=== PATIENT | male | born 1970 | race Caucasian/White ===

== ENCOUNTER 2023-11-27 08:02 | Emergency (ER) | payer MEDICARE, MEDICAID, SELFPAY ==
--- NOTE | ~2023-11-27 | XR_ITS ---
EXAMINATION: XR SHOULDER, RIGHT CLINICAL INFORMATION: Right shoulder pain COMPARISON: None available. TECHNIQUE: AP external rotation, scapular Y, and axillary views of the right shoulder. FINDINGS: 3 views of right shoulder reveals no evidence of fracture. There is mild narrowing of glenohumeral joint and marginal spurring seen at the inferior margins of the joint space. Soft tissues unremarkable. Acromioclavicular joint is normal. XR/XR shoulder RT min 2V IMPRESSION: Mild degenerative changes of acromioclavicular joint.
[2023-11-27 08:03] VITALS: BP 148/84; PULSE 71; RESP 20; TEMP 37.1; O2SAT 97; BMI 25.1
--- NOTE | 2023-11-27 08:18 | ED.EXTPRO ---
HPI - Extremity Problem General Chief complaint: Extremity Injury, Upper Stated complaint: shoulder pain Time Seen by Provider: 11/27/23 08:18 Source: patient Mode of arrival: ambulatory Limitations: no limitations History of Present Illness ED Provider: MALAIKA ALLAN PA-C HPI Narrative: 53 year old male with no significant pmhx presents to the ED today for evaluation of right shoulder pain which began after doing yardwork on Tuesday (3 days ago). Reports pulling weeds when he immediately felt pain to the anterior aspect of his right shoulder. Pain is worse with movement of the RUE. Taking Tylenol at home with minimal relief, last dose being last night. Denies fever, chills, limited ROM, numbness/tingling/weakness of the RUE. Denies blunt trauma. Related Data Previous Rx's ?Medication ?Instructions ?Recorded cyclobenzaprine 5 mg tablet 5 mg PO Q8H PRN muscle pain #7 tabs 11/27/23 lidocaine 5 % topical patch 1 patch topical DAILY #15 ea 11/27/23 (Lidoderm) naproxen 500 mg tablet 500 mg PO Q8-12H PRN pain (scale 11/27/23 score 1-3) #20 tabs Allergies Allergy/AdvReac Type Severity Reaction Status Date / Time aspirin [ASA] AdvReac Unknown STOMACH Verified 11/27/23 08:05 UPSET Review of Systems Review of Systems: Constitutional: No fever, chills, fatigue, night sweats, weight changes ENT/Mouth: No ear pain, hearing loss, nasal congestion, sinus pain, rhinorrhea, sore throat Eyes: No eye pain, swelling, redness, vision changes, discharge Cardio: No chest pain, palpitations, ESTEBAN, orthopnea, peripheral edema Pulm: No SOB, cough, sputum, wheezing, dyspnea, hemoptysis GI: No nausea, vomiting, hematemesis, abdominal pain, diarrhea, constipation, hematochezia, melena : No irregular bleeding, dysuria, frequency, urgency, hesitancy, hematuria, flank pain, urinary flow changes, urinary incontinence or retention MSK: No back pain, neck pain, joint pain, myalgias, +right shoulder pain Skin: No lesions, rashes Neuro: No weakness, numbness, paresthesias, LOC, dizziness, headache Psych: No anxiety/panic, depression, SI/HI, AH/VH All other systems reviewed and are negative. [facility] Past Medical History Attestation statement: The following information was validated with the patient. Source: old records reviewed and nursing notes reviewed Social History Social History Advance Directives: No Advance Directives Information Provided: No Physical Exam Vital Signs: Vital Signs: Last Vital Signs Temp 98.8 F 11/27/23 08:03 Pulse 71 11/27/23 08:03 Resp 20 11/27/23 08:03 BP 148/84 H 11/27/23 08:03 Pulse Ox 97 11/27/23 08:03 O2 Del Method Room Air 11/27/23 08:03 BMI result Body Mass Index 25.1 Patient hypertensive, vitals otherwise WNL Const: General: cooperative, healthy appearing, comfortable and no acute distress Orientation/consciousness: patient oriented x3 Limitations: no limitations HEENT: Head: Yes normal to inspection, Yes No palpable skull fracture present, Yes normocephalic and Yes atraumatic Eyes: General: appearance normal, both eyes and all related structures Resp: Effort & Inspection: normal respiratory effort and able to speak in complete sentences Auscultation: clear to auscultation bilaterally Cardio: Rate: regular rate Rhythm: regular rhythm Back/Spine/Pelvis: Other: No midline spinous tenderness or step off deformity. No paraspinal muscle tenderness. Skin: General skin exam: no rashes or lesions noted Neuro: Other: Strength 5/5 intact throughout. Sensation intact to light touch.? Neurovascular intact distally.? General: patient oriented x3 Extrem: Other: + right shoulder without overlying skin changes or obvious deformities. there is full ROM intact to right shoulder with minimal pain illicited on abduction. TTP of anterior aspect of shoulder without palpable deformity, fluctuance, crepitus. [employer] strength intact. sensation intact to light touch. strength intact. 2+ radial and ulnar pulse intact. Course Course Course Narrative: 929-- XR right shoulder without fracture. It does show chronic degenerative changes within the AC joint itself. I did discuss all findings with patient. Sling provided for comfort. Advised to follow up with PCP. Patient has remained stable throughout ED visit today. Discussed worrisome signs and symptoms and when to return to the ED. All questions answered at this time. Patient is agreeable with disposition and stable for discharge. Medications Administered Discontinued Medications Generic Name Dose Route Start Last Admin Trade Name Bassem PRN Reason Stop Dose Admin Ketorolac Tromethamine 30 mg 11/27/23 08:30 11/27/23 08:34 Ketorolac Tromethamine 30 Mg/Ml Vial IM 11/27/23 08:31 30 mg ONCE ONE Administration Medical Decision Making Medical Decision Making MDM Narrative: 53 year old male with no significant pmhx presents to the ED today for evaluation of right shoulder pain which began after doing yard work on Tuesday (3 days ago). Patient hypertensive likely secondary to pain, vitals otherwise wnl. He is nontoxic appearing and in NAD. He is sitting comfortably on the exam bed. On exam of right shoulder there are no overlying skin changes or obvious deformities. there is full ROM intact to right shoulder with minimal pain illicited on abduction. TTP of anterior aspect of shoulder without palpable deformity, fluctuance, crepitus. [employer] strength intact. sensation intact to light touch. strength intact. 2+ radial and ulnar pulse intact. Differential diagnosis includes msk sprain, strain, tendinitis, arthritis. Lower suspicion for dislocation/ fracture, rotator cuff injury. Unlikely NV compromise, threat to limb, compartment syndrome. Plan for imaging, pain control, and re-evaluation. Differential Diagnosis Differential Diagnoses: The differential diagnosis associated with the presentation includes as above. Admission/Observation Not indicated. Independent Interpretation I performed an independent interpretation of an: Plain X-Ray Interpretation: XR right shoulder without fracture, agree with radiologist's interpretation. Radiology Impression Discussion of test interpretation with radiology: I have reviewed the radiologist's reading. Radiologist Impression: EXAMINATION: XR SHOULDER, RIGHT CLINICAL INFORMATION: Right shoulder pain COMPARISON: None available. TECHNIQUE: AP external rotation, scapular Y, and axillary views of the right shoulder. FINDINGS: 3 views of right shoulder reveals no evidence of fracture. There is mild narrowing of glenohumeral joint and marginal spurring seen at the inferior margins of the joint space. Soft tissues unremarkable. Acromioclavicular joint is normal. XR/XR shoulder RT min 2V IMPRESSION: Mild degenerative changes of acromioclavicular joint. Prescription Management I considered prescription management with: Pain Medication Social Determinants Patient?s care significantly limited by Social Determinants of Health including: Other Social Determinant of Health Procedures Orthopedic Splinting/Casting Injury #1: Side: right Upper Extremity Injury Location: shoulder Upper Extremity Immobilizer: sling/shoulder immobilizer Critical Care Time Critical Care Time Critical Care Time: No Discharge Plan Discharge Clinical Impression: Muscle strain of right shoulder Qualifiers: Encounter type: initial encounter Qualified Code(s): S46.911A - Strain of unspecified muscle, fascia and tendon at shoulder and upper arm level, right arm, initial encounter Patient Disposition: Home, Self-Care Instructions: Muscle Strain (ED), Shoulder Immobilizer (ED) Additional Instructions: The xrays of your right shoulder do not demonstrate fracture. They do show chronic degenerative changes within the joint itself. You were supplied with a shoulder sling. You may use this for the next few days to limit movement of the shoulder. Make sure you are removing your arm and moving it around a few times a day to prevent frozen shoulder. Use ice several times per day for 20 minutes at a time for the next 48 hours and then change to heat. Flexeril is a muscle relaxer. Take this at night as it makes you drowsy. Do not drive, drink alcohol, or operate machinery while taking it. Naproxen is an anti-inflammatory / pain medication. Take with food. Do not take this with Ibuprofen. Lidoderm patches are numbing patches. Apply to painful areas. In addition you may take Tylenol at home. Follow up with your primary care provider as needed If your pain worsens, if you develop new numbness, tingling, weakness, return to the ED. Prescriptions: New cyclobenzaprine 5 mg tablet 5 mg PO Q8H PRN (Reason: muscle pain) Qty: 7 0RF naproxen 500 mg tablet 500 mg PO Q8-12H PRN (Reason: pain (scale score 1-3)) Qty: 20 0RF lidocaine [Lidoderm] 5 % adhesive patch,medicated 1 patch topical DAILY Qty: 15 0RF Rx Instructions: leave on most painful area for up to 12 hrs Referrals: Gigi Escobar MD [Primary Care Provider] - Discharge Date/Time: 11/27/23 09:53 Print Language: Yoruba
[2023-11-27] MEDS: Ketorolac Tromethamine 30 MG/ML VIAL IM (08:34)
[2023-11-27 09:52] VITALS: BP 148/84; PULSE 71; RESP 20; TEMP 37.1; O2SAT 97
== END 2023-11-27 09:53 | disposition home or self-care (01) ==
PROVIDERS: Emergency Provider Emergency Medicine; PCP Family Medicine
DX: S46.911A Strain of unspecified muscle, fascia and tendon at shoulder and upper arm level, right arm, initial encounter (principal); M25.511 Pain in right shoulder; X50.3XXA Overexertion from repetitive movements, initial encounter; X50.9XXA Other and unspecified overexertion or strenuous movements or postures, initial encounter; Y93.H2 Activity, gardening and landscaping; Y92.007 Garden or yard of unspecified non-institutional (private) residence as the place of occurrence of the external cause; Y99.8 Other external cause status
CPT/HCPCS: 29105; 73030; 96372; 99283; 99284; J1885

== ENCOUNTER 2024-05-23 11:45 | Emergency (ER) | payer MEDICARE, MEDICAID, SELFPAY ==
--- OUTSIDE RECORDS SUMMARY | 2024-05-23 11:54 | XMS_ITS | Data Portability ---
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 [address] 12/26/2015 10:43:20 12/26/2015 11:58:05 Adult health examination 662068085 Z00.00 see Risk Assessment and Lifestyle Change Counseling section above Benign ess ential hypertension 5488874 I10 Blood pressure NOT at goal. Asthma 179968118 J45.40 PERSISTENT (Mild/Mod/ Severe) Based on history, physical assessment and peak flow the patient's asthma in Not in control. See orders for adjustment in plan. The asthma action plan has been discussed. The patient verbalizes understand ing of medication use. The patient is in agreement with this plan Low back pain 635407636 M54.5 Verruca vulgaris 8281636 3 B07.9 [id number] Ciara Robbins MD , [facility], [facility] [place] [address] 01/28/2016 09:09:14 01/28/2016 10:49:26 Benign essential hypertension 8406841 I10 Blood pressure NOT at goal of less than 140/90 Shoulder pain 84420042 M 25.512 Bereavement 01749591 Z63 .4 Asthma 356612843 J45.40 PERSISTENT (Mild/Mod/ Severe) Based on history, physical assessment and peak flow the patient's asthma in Not in control. See orders for adjustment in plan. The asthma action plan has been discussed. The patient verbalizes understand ing of medication use. The patient is in agreement with this plan Low back pain 572522898 M54.5 Chronic back pain 754866 002 M54.9 [id number] MD TOBI Franklin, [facility], [facility] [place] [address] 04/19/2016 09:36:45 04/19/2016 10:30:03 Benign essential hypertension 3072006 I10 Low back pain 971196307 M54.5 Opioid dependence 375766 00 F11.20 Gastroenteritis 25329969 K52.9 [id number] Amalia Damon MD , [facility], OFFICE [address] [place] [phone] 04/22/2016 11:23:37 04/22/2016 14:59:24 Chest pain 77691825 R07.9 [id number] Ciara Robbins MD , [facility] OFFICE [address] [place] [address] 04/26/2016 11:17:40 04/26/2016 13:13:23 Low back pain 661704432 M54.5 Migraine 92641552 G43.90 9 Moderate m ajor depression 936911 F32.1 [id number] Ciara Robbins MD , [facility] OFFICE [address] [place] [address] 08/10/2016 13:23:06 08/10/2016 14:03:05 Oral infection 482811293 K13.79 Asthma 195180327 J45.90 9 Allergy to cat dander 23 2776203 J30.81 Fatigue 55309643 R53.83 [id number] Deann Delacruz NP FP, [facility], OFFICE [address] [place] [phone] 08/18/2016 08:49:18 08/18/2016 10:34:10 Asthma 202226747 J45.926 [id number] Ciara Robbins MD , [facility] OFFICE [address] [place] [phone] 09/10/2016 09:18:19 09/10/2016 10:15:51 Long-term drug therapy 103394740 Z79.899 Acute uppe r respiratory infection 43830516 J06.9 Educated patient that URI is a viral illness of the upper airways. It is not bacterial and does not benefit from antibiotic s. Average duration of URI is 7-10 days but in a recent trial, treatment at 7-10 days of illness with antibiotic s, intranasal steroids, or placebo did not alter natural history at 3 weeks. Recommende d symptomati c treatments including NSAIDS, semi-uprig ht sleep position, antihistam young at HS, limited course of nasal sympathomi metics and/or cough syrups, and nasal saline rinses with soft squeeze bottle or Neti pot. Return for fevers > 101 for 3 days, worsening sinus pain, or failure to resolve in 2-4 weeks. Asthma 580756981 J45.90 9 Chronic low back pain 27 0986808 M54.5 Molluscum contagiosum infection 60372605 B08.1 [id number] Christine Evans NP , [facility], OFFICE [address] [place] [phone] 09/28/2016 14:51:04 09/28/2016 15:22:18 Infection of tooth 187818223 K04.7 tooth 10. discussed with TR [id number] Ciara Robbins MD , [facility] OFFICE [address] [place] [phone] 12/29/2016 14:37:19 12/29/2016 16:09:08 Benign essential hypertension 2173214 I10 Blood pressure at goal Asthma 648522783 J45.30 PERSISTENT (Mild/Mod/ Severe) Based on history, physical assessment and peak flow the patient's asthma in Not in control. See orders for adjustment in plan. The asthma action plan has been discussed. The patient verbalizes understand ing of medication use. The patient is in agreement with this plan Counseling 863380757 Z71 .9 Eruption 974660813 R21 Chronic pain 49382656 G8 9.29 [id number] HILARY Hui , [facility], OFFICE [address] [place] [phone] 03/22/2017 11:19:25 03/22/2017 14:52:17 Adult health examination 760153691 Z00.00 see Risk Assessment and Lifestyle Change Counseling section above Counseling 585559785 Z71 .9 Benign ess ential hypertension 0071442 I10 Blood pressure at goal Blood pressure NOT at goal. Intrinsic asthma 6270734 08 J45.20 INTERMITTE NT Asthma- Based on history, physical assessment and peak flow the patients asthma is in control. Will continue the present medication s and follow-up in 6 months. The asthma action plan has been discussed. The patient verbalizes understand ing medication use.. The patient is in agreement with this plan. Infection of tooth 49404 8007 K04.7 Periodontitis 05944332 K 05.30 Start abxf/u with dentist asapFollow up for any worsening or changing symptoms Family his tory of Cardiovascular disease 664670793 Z82.49 Checking labsDiscus sed importance of diet and exercise [id number] Ciara Robbins MD , [facility] [place] [address] 03/29/2017 17:20:15 03/30/2017 12:55:54 Benign essential hypertension 0846741 I10 Blood pressure NOT at goal. Asthma 362812524 J45.30 PERSISTENT (Mod) Based on history, physical assessment and peak flow the patient's asthma in Not in control. See orders for adjustment in plan. The asthma action plan has been discussed. The patient verbalizes understand ing of medication use. The patient is in agreement with this plan Periodontitis 88457072 K 05.30 Low back pain 737939347 M54.5 [id number] Ciara Robbins MD , [facility] [place] [address] 06/03/2017 14:14:40 06/06/2017 13:36:16 Benign essential hypertension 2263002 I10 Asthma 393690624 J45.30 PERSISTENT (Mild/Mod/ Severe) Based on history, physical assessment and peak flow the patient's asthma is in control. The asthma action plan has been discussed. The patient verbalizes understand ing of medication use. The patient is in agreement with this plan Acute uppe r respiratory infection 09885321 J06.9 Educated patient that URI is a viral illness of the upper airways. It is not bacterial and does not benefit from antibiotic s. Average duration of URI is 7-10 days but in a recent trial, treatment at 7-10 days of illness with antibiotic s, intranasal steroids, or placebo did not alter natural history at 3 weeks. Recommende d symptomati c treatments including NSAIDS, semi-uprig ht sleep position, antihistam young at HS, limited course of nasal sympathomi metics and/or cough syrups, and nasal saline rinses with soft squeeze bottle or Neti pot. Return for fevers > 101 for 3 days, worsening sinus pain, or failure to resolve in 2-4 weeks. Obesity 343064683 E66.9 [id number] Ciara Robbins MD , [facility], OFFICE [address] [place] [phone] 08/17/2017 08:37:36 08/17/2017 09:25:19 Benign essential hypertension 3712607 I10 Chronic pain 86213418 R5 2 Asthma 526548596 J45.30 PERSISTENT (Mild/Mod/ Severe) Based on history, physical assessment and peak flow the patient's asthma is in control. See orders for adjustment in plan. The asthma action plan has been discussed. The patient verbalizes understand ing of medication use. The patient is in agreement with this plan [id number] Ciara Robbins MD , [facility], OFFICE [address] [place] [phone] 10/11/2017 17:07:41 10/11/2017 17:49:32 Benign essential hypertension 1940301 I10 Blood pressure at goal of less tahn 140/90. [id number] Ciara Robbins MD , [facility], OFFICE [address] [place] [phone] 03/06/2018 08:14:41 03/06/2018 08:55:44 Lumbar spondylosis 495357926 M47.26 Anxiety 21562966 F41.9 Chronic post-traumatic stress disorder 064151497 F43.12 [id number] Ciara Robbins MD , [facility], OFFICE [address] [place] [address] 03/29/2018 16:07:35 03/30/2018 08:32:05 Adult health examination 263621187 Z00.00 see risk assesment and counseling section Depression screening 171 447166 Z13.89 depression screening tool administer ed, entered into emr Asthma 061657694 J45.30 PERSISTENT (Mild/Mod/ Severe) Based on history, physical assessment and peak flow the patient's asthma in Not in control. See orders for adjustment in plan. The asthma action plan has been discussed. The patient verbalizes understand ing of medication use. The patient is in agreement with this plan Non-alcoho lic fatty liver 514798425 K76.0 Insomnia 287182942 G47.0 0 Resting tremor 51453970 G25.2 Chronic low back pain 27 5072347 M54.5 [id number] Ciara Robbins MD , [facility] OFFICE [address] [place] [phone] 06/12/2018 08:25:18 06/12/2018 09:09:58 Asthma 328626712 J45.30 PERSISTENT (Mild/Mod/ Severe) Based on history, physical assessment and peak flow the patient's asthma in Not in control. See orders for adjustment in plan. The asthma action plan has been discussed. The patient verbalizes understand ing of medication use. The patient is in agreement with this plan Benign ess ential hypertension 9231066 I10 Blood pressure at goal of less tahn 140/90. Major depr ession in remission 68863332 F32.5 Low back pain 465625338 M54.5 [id number] Ciara Robbins MD , [facility] OFFICE [address] [place] [phone] 06/30/2018 14:16:41 07/03/2018 12:05:13 Asthma 225202140 J45.30 Low back pain 941390349 M54.5 [id number] Ciara Robbins MD , [facility] OFFICE [address] [place] [address] 08/28/2018 08:04:07 08/28/2018 09:48:44 Chronic low back pain 960079676 M54.5 Cerebrovas cular accident 203396235 I63.9 with poor writing ability ever since. Lumbar spondylosis 24114 0009 M47.26 Anxiety 35999359 F41.9 Chronic post-traumatic stress disorder 428842692 F43.12 Benign ess ential hypertension 7293753 I10 Blood pressure at goal of less tahn 140/90. [id number] Ciara Robbins MD , [facility] OFFICE [address] [place] [phone] 02/20/2019 10:42:16 02/20/2019 15:18:00 Adult health examination 894311059 Z00.00 see risk assesment and counseling section Depression screening 171 583794 Z13.89 depression screening tool administer ed, entered into emr, scored and discussed Asthma 143638656 J45.30 PERSISTENT (Mild/Mod/ Severe) Based on history, physical assessment and peak flow the patient's asthma is not in control. See orders for adjustment in plan. The asthma action plan has been discussed. The patient verbalizes understand ing of medication use. The patient is in agreement with this plan Benign ess ential hypertension 7387155 I10 Blood pressure at goal of less tahn 140/90. [id number] Ciara Robbins MD , [facility] [place] [address] 04/09/2020 10:03:29 04/09/2020 12:19:16 Essential hypertension 26390653 I10 unknown control Moderate p ersistent asthma 266797329 J45.40 (symptoms or bronchodil ator use daily) PERSISTENT {{moderate * severe}} Based on history, physical assessment , and peak flow, the patient's asthma {{is is not*}} in control. but close ACT continue symbicort and albut as needed. Screening for malignant neoplasm of colon 222592121 Z12.11 Referral for a DIRECT booked colonoscop y. This patient is a healthy ASA Class 1 or 2 patient (only mild systemic disease), or a STABLE, well controlled insulin dependent diabetic. They do not have serious cardiac disease ie NV/angiopl asty within 1 year, symptomati c CHF; renal failure with CKD 4 or 5; take Coumadin, Plavix, Aggrenox, etc. Lumbar spondylosis 12432 0009 M47.26 edible MJ helps Benign ess ential hypertension 1493697 I10 Blood pressure at goal of less tahn 140/90. [id number] Ciara Robbins MD , [facility] [place] [address] 07/01/2020 17:30:38 07/03/2020 07:59:41 Pain of left shoulder joint 5459415386 4318262 M25.512 suspect AC joint separation . use the diclofenac , could add lidocaine if needed. will do pt referral and x-ray. and f/u about 3-4 wks. call if getting worse. [id number] Julienne Wheat PT Physical Therapy, [facility] [address] [place] [address] 07/15/2020 13:51:42 07/22/2020 12:04:40 Shoulder pain 86640734 M25.280 [id number] Ciara Robbins MD , [facility] [place] [address] 08/26/2020 13:39:28 08/28/2020 13:20:33 Adult health examination 048726871 Z00.00 see risk assesment and counseling section Depression screening 171 824278 Z13.31 depression screening tool administer ed, entered into emr, scored and discussed Screening for alcohol abuse 674917539 Z13.39 Counseling 464877707 Z71 .89 including cardiovasc ular risk reduction counseling Mild inter mittent asthma 649236544 J45.20 (symptoms or bronchodil ator use at most two days per week) Based on history, physical assessment , and ACT, the patient's asthma is in control. Will continue the present medication s and follow up in 6 months. The asthma action plan has been discussed. The patient verbalizes understand ing medication use.. The patient is in agreement with this plan. Essential hypertension 31048471 I10 unknown control Screening for malignant neoplasm of colon 368170711 Z12.11 Referral for a DIRECT booked colonoscop y. This patient is a healthy ASA Class 1 or 2 patient (only mild systemic disease), or a STABLE, well controlled insulin dependent diabetic. They do not have serious cardiac disease ie [place]/angiopl asty within 1 year, symptomati c CHF; renal failure with CKD 4 or 5; take Coumadin, Plavix, Aggrenox, etc. Cerebrovas cular accident 392507470 I63.9 with poor writing ability ever since. Non-alcoho lic fatty liver 774459249 K76.0 denies alcohol use Cutaneous horn 770981854 L85.8 forhead, cutaneous horn or wart treated with LN Recurrent major depression in partial remission 49302182 F33.41 Does not want meds [id number] , [facility], OFFICE [address] [place] [address] 02/25/2021 08:24:09 02/25/2021 08:59:10 Mild persistent asthma 913288883 J45.30 (symptoms or bronchodil ator use more than two days per week) PERSISTENT {{Mild* Mo d Severe}} Based on history, physical assessment , and peak flow, the patient's asthma {{is* is not}} in control. See orders for adjustment in plan.The asthma action plan has been discussed. The patient verbalizes understand ing of medication use.The patient is in agreement with this plan. Essential hypertension 01345873 I10 132/82, contnuie current meds. amlodipine Otorrhea of right ear 10 49371244 453709 H92.11 and red ear?TM and pulsatile, refer to ENT. [id number] Ciara Robbins MD , [facility] [place] [address] 09/22/2021 17:14:59 09/22/2021 17:42:59 Essential hypertension 13549338 I10 64280, contnuie current meds. amlodipine Active or passive immunization 235417121 Z23 Patient declines the covid vaccine Asthma 456312619 J45.30 PERSISTENT (MildBased on history, physical assessment and peak flow the patient's asthma is not in control. See orders for adjustment in plan.The asthma action plan has been discussed. The patient verbalizes understand ing of medication use.The patient is in agreement with this plan Chronic low back pain 27 2649120 M54.50 continue the gabapentin at night and takes gummy. CVA - cere brovascular accident due to cerebral artery occlusion 033029484 I63.50 memory /spelling issues. Non-alcoho lic fatty liver 757165171 K76.0 denies alcohol use Recurrent major depression in partial remission 76282181 F33.41 Does not want meds Impaired f asting glycemia 797171919 R73.01 853 [id number] Ciara Robbins MD , [facility] [place] [address] 04/05/2022 16:09:29 04/05/2022 16:40:25 Adult health examination 293454680 Z00.00 see risk assesment and counseling section Depression screening 171 003387 Z13.31 depression screening tool administer ed, entered into emr, scored and discussed, Screening for alcohol abuse 352202780 Z13.39 Counseling 580583435 Z71 .89 including cardiovasc ular risk reduction counseling Essential hypertension 84036492 I10 130/80, contnuie current meds. amlodipine Active or passive immunization 315760262 Z23 Patient declines the covid vaccine and FLU vaccine Screening for malignant neoplasm of colon 279628415 Z12.11 will do the occult blood. Non-alcoho lic fatty liver 721391259 K76.0 milk thistle. continue reduce alcohol. Impacted c erumen in left ear 3988844346 860590 H61.22 [id number] Ciara Robbins MD , [facility] [place] [address] 04/16/2022 11:24:45 04/20/2022 16:03:07 Active or passive immunization 723959368 Z23 Patient declines the covid vaccine and FLU vaccine Impacted cerumen 8396342 6 H61.20 good clearance with irrigation [id number] Ciara Robbins MD , [facility] [place] [address] 03/23/2023 16:01:57 03/23/2023 17:48:08 COVID-19 579859451 U07.1 : Considered oral steroid for asthma but Paxlovid is given a double to quadruple the budesonide dose from the Symbicort so will hold on adding steroid unless he is getting worse in the next few days. For asthma. Paxlovid pros and cons. Discussed and will take the treatment. Discussed pros and cons of paxlovid A discussion regarding the use of Paxlovid treatment in the setting of COVID-19 infection was had with the patient.Th e patient qualifies for Paxlovid treatment. They are 12 years old or older and weight at least 40kg (88lbs). They have a positive COVID test (either PCR or antigen). Symptom onset was within 5 days. They do not have severe renal impairment (GFR >30). If the GFR is 30-60, the dose of the medication is reduced. eGFR >60: 300mg nirmatrelv ir (two 150mg tablets) with 100mg ritonavir (one tablet). All 3 tablets taken together twice daily for 5 days, with or without food. ? ? eGFR 30-60: 150mg nirmatrelv ir with 100mg ritonavir. Both tablets taken together twice daily for 5 days, with or without food. The patient was advised that the treatment is sent to a local pharmacy. 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 Data from clinical trials have shown that these treatments reduce the risk of ER visits, hospitaliz ation, and in patients with mild to moderate symptoms, and those at high risk of complicati ons. Side effects were discussed: 1. Allergic reactions are possible, notify the nurse with any concerning symptoms2. Liver problems ? notify your provider if you experience loss of appetite, yellowing of the skin or eyes, dark colored urine, or pale colored stools.3. Altered sense of taste4. Nausea5. High blood pressure6. Muscle aches7. This is medication is still being investigat ed so not all side effects are known at this time.8. Risks for or breastfeed ing women are currently unknown.9. This medication may interact with oral control options. Please use condoms or a barrier method while on this medication .Your provider has reviewed interactio ns with all of your medication s and the following need to be stopped or the dose reduced: xxxHow do I take PAXLOVID?P AXLOVID consists of 2 medicines: nirmatrelv ir and ritonavir. - Take 2 pink tablets of nirmatrelv ir with 1 white tablet of ritonavir by mouth 2 times each day (in the morning and in the evening) for 5 days. For each dose, take all 3 tablets at the same time.- If you have kidney disease, talk to your healthcare provider. You may need a different dose.- Swallow the tablets whole. Do not chew, break, or crush the tablets.- Take PAXLOVID with or without food.- Do not stop taking PAXLOVID without talking to your healthcare provider, even if you feel better.- If you miss a dose of PAXLOVID within 8 hours of the time it is usually taken, take it as soon as you remember. If you miss a dose by more than 8 hours, skip the missed dose and take the next dose at your regular time. Do not take 2 doses of PAXLOVID at the same time. [id number] Ciara Robbins MD , [facility] OFFICE [address] [place] [address] 04/27/2023 09:07:12 04/27/2023 10:11:36 Essential hypertension 14057832 I10 130/80, contnuie current meds. amlodipine Low back pain 846425980 M54.50 continue gabapentin [id number] Ciara Robbins MD , [facility]ICE [address] [place] [phone] 11/01/2023 16:40:15 11/01/2023 17:32:01 Essential hypertension 29137801 I10 134/72, contnuie current meds. amlodipine lisinopril /hctz Chronic back pain 377275 002 M54.9 conitnue gabaentin. Mild persi stent asthma 123447126 J45.30 continue the dulera. [id number] Ciara Robbins MD , [facility], OFFICE [address] [place] [phone] 6 12/16/2023 08:28:58 12/16/2023 10:08:48 Screening for malignant neoplasm of colon 104312638 Z12.11 agrees to IFOBT Pain of ri ght shoulder joint 2835278788 0225756 M25.511 Suspect ant deltoid strain, improving. [id number] GABO Hurley , [facility], OFFICE [address] [place] [phone] 6 03/29/2024 13:44:13 03/29/2024 14:56:36 Dysuria 81318589 R30.0 Patient with urinary symptoms. HE IS UNABLE TO DO URINE NOW, WILL TAKE HOME THE CUP, BRING BACK LATER TODAYAWARE TO NOT START MEDS UNTIL URINE TEST SUBMITTED History C/W URINARY TRACT INFECTIONN o symptoms of pyelonephr itis. Will send urine for culture.Di scussed supportive and preventive measures.P atient instructed to follow up if not better or with new symptoms. Active or passive immunization 021873579 Z23 vac declined [id number] Valerie Rosales CMA , [facility], OFFICE [address] [place] [address] 05/04/2024 08:44:04 05/04/2024 09:41:23 Adult health examination 590067673 Z00.00 see risk assesment and counseling section Depression screening 171 798368 Z13.31 depression screening tool administer ed Screening for alcohol abuse 065760454 Z13.39 Alcohol use screening tool administer ed Mild inter mittent asthma 739904338 J45.20 (symptoms or bronchodil ator use at most two days per week) Based on history, physical assessment , and ACT, the patient's asthma is in control. Will continue the present medication s and follow up in 6 months. The asthma action plan has been discussed. The patient verbalizes understand ing medication use.. The patient is in agreement with this plan. Active or passive immunization 491642866 Z23 Flu:Shingl es and PPV: knows to get at pharmacy Screening for malignant neoplasm of colon 591650793 Z12.11 agrees to IFOBT Essential hypertension 68007994 I10 134/86 contnuie current meds. amlodipine lisinopril /hctz Health Concerns Section Related Observation LastModified by Organization Detai ls LastModified Time None Recorded Concern Status LastModified by Organization Details LastModified Time None Recorded Advance Directives Directive None Recorded Payers Encounter Date Sequence Insurance Name Policy Number Policy Moreau Covered Member ID Moreau Member ID Guarantor Name 04/27/2023 1 [place] [employer] Elgin Cooney [id number] Elgin Cooney 04/27/2023 2 [place] Elgin Cooney [id number] Elgin Cooney 11/01/2023 1 MEDICARE B-[place]: [employer] Elgin Cooney [id number] Elgin Cooney 11/01/2023 2 [place] Elgin Cooney [id number] Elgin Cooney 12/16/2023 1 MEDICARE B-[place]: [employer] Elgin Cooney [id number] Elgin Cooney 12/16/2023 2 [place] [facility] Elgin Cooney [id number] Elgin Cooney 03/29/2024 1 [place] [facility] Elgin Cooney [id number] Elgin Cooney 03/29/2024 2 [place] [facility]) Elgin Cooney [id number] Elgin Cooney 05/04/2024 1 MEDICARE B-[place]: [facility] Elgin Cooney [id number] Elign Cooney 05/04/2024 2 [place] [facility]) Elgin Cooney [id number] Elgin Cooney Notes Date Note Type Note Provider Name and Address Organization Details Recorded Time 3 text/html [facility] AsthmaReported bypatient.Severity/Intens ity/Frequency of Symptoms:Intermittent asthma with symptoms less than 2 days per weekNotes:Well controlledVMG HypertensionReported bypatient.Context:No ischemic heart disease; No kidney disease; No history of CVA; No congestive heart failure; No history of transient ischemic attacks; No peripheral vascular disease; No history of diabetes Control:Patient understands medications are to lower blood pressure Compliance:Compliant with medications; Compliant with diet; Compliant with exercise; Compliant with follow-up visits Barriers to CareNo identified barriers to care Associated Symptoms:No chest pain; No shortness of breath; No edema; No fatigue; No palpitations; No decline in exercise capacity (other than back pain); No snoring Here for MMRecovering from Covid. HTN on Lisinopril, Hctz and amlodipine. No CP or SOB. 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 Chicken , greens, brussel sprouts. Missed fishing due to Covid. Awaiting schedule colonoscopy - had to cancel for Covid. Has a fatty liver. Chronic back pain. worse w/ rain, snow , WEaned himself off narcotics, but still suffers. Hard to move around. takes gabapentin. Has not had covid vaccine, thinking of it. Uses asthma med symbicort and the albut as needed. Ciara Robbins MD [address] [place] [address], [phone], [facility] 04/27/2023 10:10:48 4 text/html [facility] AsthmaReported bypatient.Severity/Intens ity/Frequency of Symptoms:Intermittent asthma with symptoms less than 2 days per weekNotes:Well controlledVMG HypertensionReported bypatient.Context:No ischemic heart disease; No kidney disease; No history of CVA; No congestive heart failure; No history of transient ischemic attacks; No peripheral vascular disease; No history of diabetes Control:Patient understands medications are to lower blood pressure Compliance:Compliant with medications; Compliant with diet; Compliant with exercise; Compliant with follow-up visits Barriers to CareNo identified barriers to care Associated Symptoms:No chest pain; No shortness of breath; No edema; No fatigue; No palpitations; No decline in exercise capacity (other than back pain); No snoring Here for MM HTN on Lisinopril, Hctz and amlodipine. No CP or SOB. no edema aSthma- on dulera / albut. Hard when it is hot. 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 Chicken , greens, brussel sprouts. broccoli. Walks a lot 2-3 miles a day.Going fishing. Has a fatty liver. Chronic back pain. worse w/ rain, snow , WEaned himself off narcotics, but still suffers. Hard to move around. takes gabapentin. Uses asthma med symbicort and the albut as needed. Ciara Robbins MD [address] [place] [address], [phone], [facility] 11/01/2023 17:34:29 4 text/html Here for f/u R shoulder injury . Went to [employer] 11/26. 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 Nl AC joint. Doing his own rehab. using the stretch band.still some anterior deltoid pain. But ROM back. Edibles and tylenol. . Ciara Robbins MD [address] [place] [address], [phone], [facility] 12/16/2023 09:04:56 4 text/html Urinary FrequencyReported bypatient.SymptomsBurning ; No fever; No chills;Back pain(chronic back pain); No nausea; No vomiting 3 days ago noted dysuriaBurning and hesistancyNo bloodNo fevers - one time felt hot/sweaty few d ago. Cant urinate now- WILL COME BACK LATER W SAMPLEDrinking org cranberry juice GABO Hurley [facility] 03/29/2024 15:22:33 text/html Risk Assessment and Lifestyle Change Counseling (Medicare)Reported bypatient.Coronary Artery Disease Risk Assessment:Family History of Coronary Artery Disease(mother and father) Breast Cancer Risk Assessment:No family history of breast cancer Colon Cancer Risk Assessment:No family history of pre cancerous colon polyps or cancer Lung Cancer Risk Assessment:Never smoked Fracture Risk Assessment:No unexplained fracture; No anti-seizure medication; Taking Vitamin D supplement; No chronic use of proton pump inhibitors;Uses proton pump inhibitors on a chronic basis Cognitive/Behavioral Risk Assessment:Personal history of mental illness Safety Risk Assessment:No rails on steps Functional Status:Does not live alone Diet:Counseled about eating a diet low in trans and saturated fats and high in fiber, fruits and vegetables; Counseled about appropriate calcium intake and good dietary sources of calcium.; Discussed the value of a Mediterranean diet , and eating more fruits and vegetables; eating lots of meat Exercise counseling:Discussed the importance of daily physical activity; Discussed the importance of weight bearing exercise Safety:Counseled about avoiding excessive and unsafe alcohol intake; Counseled about use of seat belts; 12 beers a weekVMG AsthmaReported bypatient.Severity/Intens ity/Frequency of Symptoms:Intermittent asthma with symptoms less than 2 days per weekNotes:-Well controlled. uses the albut for trigger w/ cold air. symbicort daily. faceVMG HypertensionReported bypatient.Context:No ischemic heart disease; No kidney disease; No history of CVA; No congestive heart failure; No history of transient ischemic attacks; No peripheral vascular disease; No history of diabetes Control:Patient understands medications are to lower blood pressure Compliance:Compliant with medications; Compliant with diet; Compliant with exercise; Compliant with follow-up visits Barriers to CareNo identified barriers to care Associated Symptoms:No chest pain; No shortness of breath; No edema; No fatigue; No palpitations; No decline in exercise capacity (other than back pain); No snoring 53 yo here for physical. 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 still with R hand tremor. Uses medical MJ. Chicken , greens, brussel sprouts. ExerciseHiking, Hunting , Doing fishing. Has a fatty liver. Alcohol Micolob ultra-2 beers occasionally. 12 pk lasts a month.apple cider, vinegar, jody, gummy fiber Chronic back pain. worse w/ rain, snow , WEaned himself off narcotics, but still suffers. Hard to move around. MJ helps. Cold- induced asthma- not too bad. no longer needing dulera. using albuterol. seen a month ago got bactrim for dysuria, helped a little, but still has it, states prostate was not checked. NOHEMI Knight, [facility] 05/04/2024 09:56:44
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
[2024-05-23 12:12] VITALS: BP 164/104; PULSE 85; RESP 18; TEMP 37; O2SAT 95; BMI 28.1
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
[2024-05-23] MEDS: Diphth,Pertus(ACell),Tet Adult 0.5 ML SYRINGE IM (12:53)
[2024-05-23] MEDS: Bacitracin Oint 0.9 GM PACKET 1 APPL TOPICAL (12:55)
[2024-05-23 13:02] VITALS: BP 162/96; PULSE 86; RESP 18; TEMP 36.9; O2SAT 95
== END 2024-05-23 13:03 | disposition home or self-care (01) ==
PROVIDERS: Emergency Provider Student in an Organized Health Care Education/Training Program; PCP Family Medicine
DX: T23.201A Burn of second degree of right hand, unspecified site, initial encounter (principal); T31.0 Burns involving less than 10% of body surface; M79.641 Pain in right hand; X02.0XXA Exposure to flames in controlled fire in building or structure, initial encounter; Y93.G3 Activity, cooking and baking; Y92.090 Kitchen in other non-institutional residence as the place of occurrence of the external cause; Y99.8 Other external cause status; Z23 Encounter for immunization
CPT/HCPCS: 16025; 90471; 90715; 99282; 99284

== ENCOUNTER 2024-05-28 07:18 | Emergency (ER) | payer MEDICARE, MEDICAID, SELFPAY ==
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
[2024-05-28 07:28] VITALS: BP 144/93; PULSE 80; RESP 16; TEMP 36.4; O2SAT 97; BMI 25.1
--- NOTE | 2024-05-28 09:09 | ED.GENADULT ---
HPI - General Adult General Chief complaint: Skin/Abscess/Foreign Body Stated complaint: burn recheck r thumb Time Seen by Provider: 05/28/24 09:08 Source: patient, RN notes reviewed and old records reviewed Mode of arrival: ambulatory Limitations: no limitations History of Present Illness ED Provider: Amy HPI narrative: Patient is a 54-year-old male presenting to the emergency department for evaluation of wound to right thumb. Patient was seen here on 05/23 for a superficial partial thickness burn. He is here to ensure it does not appear infected as he is leaving to go to [place] later today. He states that he will be in a very remote area with little access to medical care. He denies any fevers, chills, body aches. Denies any increased redness, swelling, purulent drainage. MD complaint: wound check Related Data Previous Rx's ?Medication ?Instructions ?Recorded cyclobenzaprine 5 mg tablet 5 mg PO Q8H PRN muscle pain #7 tabs 11/27/23 lidocaine 5 % topical patch 1 patch topical DAILY #15 ea 11/27/23 (Lidoderm) naproxen 500 mg tablet 500 mg PO Q8-12H PRN pain (scale 11/27/23 score 1-3) #20 tabs bacitracin 500 unit/gram topical 1 appl topical BID #30 grams 05/23/24 ointment cephalexin 500 mg capsule 500 mg PO QID #28 caps 05/28/24 Allergies Allergy/AdvReac Type Severity Reaction Status Date / Time aspirin [ASA] AdvReac Unknown STOMACH Verified 05/28/24 07:29 UPSET Review of Systems Review of Systems: As per HPI Yes all other systems are reviewed and are negative Constitutional: Constitutional: Reports as per HPI [facility] Social History Social History Do you have a plan to hurt others: No Plan Physical Exam ED Vital Signs: Vital Signs - 24 hr 05/28/24 07:28 Temperature 97.6 F Pulse Rate 80 Respiratory Rate 16 Blood Pressure 144/93 H Pulse Oximetry 97 Oxygen Delivery Method Room Air BMI result Body Mass Index 25.1 Vital signs have been reviewed and appear to be correct. Blood pressure normal. Heart rate normal. Respiratory rate normal. Temperature normal. Oxygen saturation normal. Const General: cooperative, healthy appearing and no acute distress Orientation/consciousness: oriented to person, oriented to place, oriented to time and patient oriented x3 Limitations: no limitations HENMT Head: Yes normocephalic and Yes atraumatic Ears: external ears normal General nose exam: Normal external nose present Face and sinus: Yes face symmetric Mouth: oropharynx normal and moist mucous membranes Throat: Yes uvula midline Eyes Pupils: Equal, round and reactive pupils present Neck Neck: Yes normal visual inspection and Yes supple Resp Effort & Inspection: normal respiratory effort and able to speak in complete sentences Auscultation: clear to auscultation bilaterally Cardio Rate: regular rate Rhythm: regular rhythm Heart sounds: S1 normal heart sound present and S2 normal heart sound present Skin General skin exam: elasticity normal and turgor normal Neuro General: oriented to person, oriented to place, oriented to time, patient oriented x3, moves all extremities, no focal motor deficits and CN's II-XI intact bilaterally Cranial nerves: Yes Equal, round and reactive pupils present Cognition (Neuro): normal cognition Extrem General: Yes full ROM, Yes no pedal edema and Yes no calf tenderness Hand/finger images: 1. healing burn to dorsal thumb with visible granulation tissue, no surrounding erythema, edema, purulent drainage Psych Mental Status: mental status grossly normal Affect: normal affect Thought process: Normal thought process present Medical Decision Making Medical Decision Making MDM Narrative: Patient is a 54-year-old male presenting to the emergency department for evaluation of wound to right thumb. On exam patient is awake, A+Ox3, VS WNL, afebrile, normal neurological exam without focal deficits, physical exam findings as above. Given reported symptoms and physical exam findings, initial differential includes but is not limited to cellulitis, impaired wound healing. Burn appears to be healing normally, however, given this specific circumstances that patient will be without access to medical care for the next several days, discussed with patient that I will send a prescription for cephalexin should the wound begin to appear infected. Symptoms for which patient should begin taking the antibiotics were discussed with patient at length. Also advised patient that he should not expose his wound to water from lakes, ponds, etc as this can introduce new bacteria. Patient states that he has waterproof gloves and will cover the wound while fishing. Symptoms for which patient should seek emergent medical care were also discussed. Follow up with PCP as needed. Patient verbalized understanding of and agreement with plan. Differential Diagnosis Differential Diagnoses: The differential diagnosis associated with the presentation includes As per [facility] External Record Review External record reviewed: Inpatient record, Office record and Outpatient record Prescription Management I considered prescription management with: Antibiotic Discharge Plan Discharge Clinical Impression: Visit for wound check Patient Disposition: Home, Self-Care Instructions: Superficial Burn (DC), Acute Wounds (DC) Additional Instructions: You were evaluated in the emergency department today for a recheck of a burn to her right thumb. The wound appears to be healing appropriately. Considering that you are going to be traveling with little access to medical care, you are being prescribed antibiotics should the wound began to appear infected. These symptoms would include increased redness, swelling, thick yellow drainage, redness streaking up your hand, fever. If you develop these symptoms, begin taking the antibiotics and seek medical treatment as soon as possible. Follow up with PCP as needed. Prescriptions: New cephalexin 500 mg capsule 500 mg PO QID Qty: 28 0RF No Action cyclobenzaprine 5 mg tablet 5 mg PO Q8H PRN (Reason: muscle pain) Qty: 7 0RF naproxen 500 mg tablet 500 mg PO Q8-12H PRN (Reason: pain (scale score 1-3)) Qty: 20 0RF lidocaine [Lidoderm] 5 % adhesive patch,medicated 1 patch topical DAILY Qty: 15 0RF Rx Instructions: leave on most painful area for up to 12 hrs bacitracin 500 unit/gram ointment 1 appl topical BID Qty: 30 0RF Print Language: [place]ian
--- OUTSIDE RECORDS SUMMARY | 2024-05-28 09:54 | XMS_ITS | Data Portability ---
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 lisinopril [...] [place] [employer] Elgin Cooney [id number] Elgin Cooney 04/27/2023 2 [place] Elgin Cooney [id number] Elgin Cooney 11/01/2023 1 [place] [employer] Elgin Cooney [id number] Elgin Cooney 11/01/2023 2 [place] Elgin Cooney [id number] Elgin Cooney 12/16/2023 1 [place] [employer] Elgin Cooney [id number] Elgin Cooney 12/16/2023 2 [place] [facility] Elgin Cooney [id number] Elgin Cooney 03/29/2024 1 [place] [facility] Elgin Cooney [id number] Elgin Cooney 03/29/2024 2 [place] [facility] Elgin Cooney [id number] Elgin Cooney 05/04/2024 1 [place] [facility] Elgin Cooney [id number] Elgin Cooney 05/04/2024 2 [place] [facility] Elgin Cooney [id number] Elgin Cooney Notes Date Note Type Note [...] the albut as needed. Ciara Robbins MD [address] [place] [address], [phone], [facility] 04/27/2023 10:10:48 4 text/html [facility] AsthmaReported [...] the albut as needed. Ciara Robbins MD [address] [place] [address], [phone], [facility] 11/01/2023 17:34:29 4 text/html Here for f/u R shoulder injury . Went to [facility] 11/26. 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 Nl AC joint. Doing his own rehab. using the stretch band.still some anterior deltoid pain. But ROM back. Edibles and tylenol. . Ciara Robbins MD [address] [place] [address], [phone], [facility] 12/16/2023 09:04:56 4 text/html Urinary FrequencyReported bypatient.SymptomsBurning ; No fever; No chills;Back pain(chronic back pain); No nausea; No vomiting 3 days ago noted dysuriaBurning and hesistancyNo bloodNo fevers - one time felt hot/sweaty few d ago. Cant urinate now- WILL COME BACK LATER W SAMPLEDrinking org cranberry juice GABO Hurley [facility] 03/29/2024 15:22:33 text/html Risk Assessment [...] states prostate was not checked. NOHEMI Knight, [facility] 05/04/2024 09:56:44
== END 2024-05-28 09:20 | disposition home or self-care (01) ==
PROVIDERS: Emergency Provider Emergency Medicine; PCP Family Medicine
DX: Z48.00 Encounter for change or removal of nonsurgical wound dressing (principal); T23.011A Burn of unspecified degree of right thumb (nail), initial encounter; X08.8XXA Exposure to other specified smoke, fire and flames, initial encounter; Y93.9 Activity, unspecified; Y92.9 Unspecified place or not applicable; Y99.9 Unspecified external cause status
CPT/HCPCS: 99281; 99283

== ENCOUNTER 2024-10-18 06:26 | Emergency (ER) | payer MEDICARE, MEDICAID, SELFPAY ==
--- NOTE | ~2024-10-18 | XR_ITS ---
EXAMINATION: XR CHEST CLINICAL INFORMATION: bradycardia COMPARISON: None available. TECHNIQUE: Frontal view of the chest was obtained. FINDINGS: The cardiac, hilar, and mediastinal contours are normal. The lungs are clear bilaterally. No pneumothorax or effusion. No focal osseous or soft tissue abnormality. XR/XR chest 1V IMPRESSION: No active pulmonary disease. Electronically signed by: Raleigh Roland MD 10/18/2024 07:50 AM EDT
--- NOTE | ~2024-10-18 | XR_ITS ---
EXAMINATION: XR LUMBOSACRAL SPINE CLINICAL INFORMATION: pain, injury COMPARISON: None available. Study from 2013 is archived. TECHNIQUE: Three views of the lumbosacral spine. FINDINGS: There is a minimal levoconvex scoliosis. There is straightening of the normal lordosis. No fracture, compression deformity, or suspicious bone lesion evident. No significant subluxation. Severe disc degeneration focally at L4-5 with sclerosis of the endplates and disc osteophytic spurring. Mild changes of the other levels. Normal facet alignment with mild multilevel degenerative facet change. There is a very subtle cortical step-off of the superior S2 level on the sagittal view, possible sacral fracture in the appropriate clinical setting. This is not well seen on the AP projection, raising the possibility of artifact. Nevertheless, fracture not excluded. There are degenerative changes in the left greater than right SI joints. No soft tissue abnormalities noted. XR/XR lumbar spine 2-3V IMPRESSION: 1. Questionable very subtle cortical step-off superior S2 level on the sagittal projections, raising the possibility of subtle S2 fracture. This is only well appreciated on the sagittal views. This could be artifact. Would correlate with cross-sectional CT imaging if felt clinically warranted. 2. Otherwise, no definite acute bony abnormalities of the lumbar spine. 3. Mild to moderate degenerative lumbar spondylosis. Electronically signed by: Raleigh Roland MD 10/18/2024 08:43 AM EDT
[2024-10-18 06:29] VITALS: BP 142/98; PULSE 97; RESP 20; TEMP 36.7; O2SAT 98; BMI 58.5
--- NOTE | 2024-10-18 07:28 | ECG_ITS ---
Test Reason : syncope/fall Blood Pressure : */* mmHG Vent. Rate : 73 BPM Atrial Rate : 73 BPM P-R Int : 134 ms QRS Dur : 92 ms QT Int : 384 ms P-R-T Axes : 27 -18 23 degrees QTcB Int : 423 ms Normal sinus rhythm Incomplete right bundle branch block Septal infarct , age undetermined Abnormal ECG No previous ECGs available Referred By: Generic ED Physician Electronically Signed By: ASIF AGUILERA
[2024-10-18 07:38] LABS: MANUAL DIFF FLAG NO
[2024-10-18 07:45] LABS: Basophils Percent Auto 0.3 % (0-2); Eosinophils Absolute Auto 0.1 X10*3/uL (0.0-0.4); Eosinophils Percent Auto 0.5 % (0-4); Hematocrit 41.1 % (42.0-52.0); Hemoglobin 14.5 g/dl (14.0-18.0); Imm Gran Abs Auto 0.02 X10*3/uL (0.00-0.03); Imm Gran Pct Auto 0.2 % (0.0-0.4); Lymphocytes Absolute Auto 1.3 X10*3/uL (1.2-4.9); Lymphocytes Percent Auto 12.8 % (20-40); Mean Corpuscular HGB Conc 35.3 g/dl (31.0-36.0); Mean Corpuscular Hemoglobin 31.2 pg (27.0-33.0); Mean Corpuscular Volume 88.4 fL (80.0-98.0); Mean Platelet Volume 9.1 fL (9.4-12.4); Monocytes Absolute Auto 0.9 X10*3/uL (0.1-1.2); Monocytes Percent Auto 9.1 % (2-11); Neutrophils Absolute Auto 7.7 x10*3/uL (2.0-8.3); Neutrophils Percent Auto 77.1 % (45-73); Platelet Count 249 X10*3/uL (160-400); Red Blood Count 4.65 X10*6/uL (4.60-5.80); Red Cell Distribution Width 12.6 % (11.0-16.0)
--- NOTE | 2024-10-18 07:51 | ED_ITS ---
HPI - Dizziness General Chief Complaint: Fall Stated Complaint: Back Pain Time Seen by Provider: 10/18/24 07:43 Source: patient Mode of arrival: ambulatory Limitations: no limitations History of Present Illness ED Provider: HPI Narrative: This is a 54-year-old male presenting with an episode as what he describes as dizziness and fall on the steps, he states he did not hit his head or neck, and he has pain from contusion in his lower back. He states he woke up went to the bathroom to take a hot shower after hot shower he started going down the steps and this is when he likely had a syncopal episode. No reports of history of seizures did not have any prodromal symptoms of chest pain or shortness of breath, does not drink alcohol on regular basis no drug use, he takes medications for high blood pressure he is not able to recall those names, currently except for lower back pain he has no headaches no vision changes no chest pain. MD elicited complaint: dizziness Related Data Previous Rx's ?Medication ?Instructions ?Recorded cyclobenzaprine 5 mg tablet 5 mg PO Q8H PRN muscle pain #7 tabs 11/27/23 lidocaine 5 % topical patch 1 patch topical DAILY #15 ea 11/27/23 (Lidoderm) naproxen 500 mg tablet 500 mg PO Q8-12H PRN pain (scale 11/27/23 score 1-3) #20 tabs bacitracin 500 unit/gram topical 1 appl topical BID #30 grams 05/23/24 ointment cephalexin 500 mg capsule 500 mg PO QID #28 caps 05/28/24 oxycodone 5 mg capsule 5 mg PO Q8H PRN pain 3 days #10 10/18/24 caps Allergies Allergy/AdvReac Type Severity Reaction Status Date / Time aspirin [ASA] AdvReac Unknown STOMACH Verified 10/18/24 06:30 UPSET Review of Systems 2 Constitutional: Constitutional: Reports as per [facility] Social History Social History Smoked in Last 30 Days: No Use of substances other than those prescribed or required for medical reasons: No Advance Directives: No Advance Directives Information Provided: Yes Do you have a plan to hurt others: No Plan Physical Exam 2 Vital Signs: Vital Signs: Last Vital Signs Temp 98.1 F 10/18/24 06:29 Pulse 97 10/18/24 06:29 Resp 20 10/18/24 06:29 BP 142/98 H 10/18/24 06:29 Pulse Ox 98 10/18/24 06:29 O2 Del Method Room Air 10/18/24 06:29 BMI result Body Mass Index 58.5 Const: Other: * Gen: ?Overall well-appearing patient, no trauma with the face ,head * HEENT: PERRLA, EOMI, MMM, * Neck: Supple, no LAD * CV: RRR, no obvious murmurs appreciated * Resp: ?No wheezing rales rhonchi no stridor moving air well * Abd: ?Bowel sounds are present, no tenderness no rebound no rigidity * MSK: FROM, strength 5/5 all extremities, no deformities noted, does have L5/S1 tenderness without step-offs possibly more left-sided paraspinal without bruising * Skin: Warm, dry, intact, * Neuro: ?Alert and oriented x3, moving upper and lower extremities symmetrically, no obvious facial asymmetry noted, no dysmetria upper or lower extremities no nystagmus Medications Administered Discontinued Medications Generic Name Dose Route Start Last Admin Trade Name Freq PRN Reason Stop Dose Admin Ketorolac Tromethamine 15 mg 10/18/24 07:49 10/18/24 07:56 Ketorolac Tromethamine 15 Mg/Ml Vial IVPUSH 10/18/24 07:50 15 mg ONCE ONE Administration Morphine Sulfate 4 mg 10/18/24 07:49 10/18/24 07:58 Morphine Sulfate 4 Mg/Ml Cartridge IVPUSH 10/18/24 07:50 4 mg ONCE ONE Administration Protocol Oxycodone HCl 5 mg 10/18/24 07:49 10/18/24 07:59 Oxycodone Hcl Immed Release 5 Mg Tablet PO 10/18/24 07:50 5 mg ONCE ONE Administration Medical Decision Making Medical Decision Making [facility] Narrative: 07:53 some of the considerations for workup as below, patient will have cardiac workup, we will make sure does have underlying dysrhythmia but it sounds like he had a syncopal likely vagal episode after hot shower going down the steps, his main concern is that he contused his back, I did discuss with him cardiac workup , he has had no chest pain, shortness of breath, nausea or vomiting or diaphoresis to suspect ACS or PE, ECG without underlying dysrhythmia or changes to suspect underlying cardiac ischemia. If workup is reassuring anticipating discharge we will medicate for pain, we will obtain x-ray to make sure there is no obvious lumbar fractures. 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 10/18/24 07:34 10/18/24 07:34 Labs: Lab Results 10/18/24 Range/Units 07:34 WBC 10.0 (4.8-10.8) X10*3/uL RBC 4.65 (4.60-5.80) X10*6/uL Hgb 14.5 (14.0-18.0) g/dl Hct 41.1 L (42.0-52.0) % MCV 88.4 (80.0-98.0) fL MCH 31.2 (27.0-33.0) pg MCHC 35.3 (31.0-36.0) g/dl RDW 12.6 (11.0-16.0) % Plt Count 249 (160-400) X10*3/uL MPV 9.1 L (9.4-12.4) fL Immature Gran % (Auto) 0.2 (0.0-0.4) % Neut % (Auto) 77.1 H (45-73) % Lymph % (Auto) 12.8 L (20-40) % Tompkins % (Auto) 9.1 (2-11) % Eos % (Auto) 0.5 (0-4) % Baso % (Auto) 0.3 (0-2) % Lymph # (Auto) 1.3 (1.2-4.9) X10*3/uL Tompkins # (Auto) 0.9 (0.1-1.2) X10*3/uL Eos # (Auto) 0.1 (0.0-0.4) X10*3/uL Baso # (Auto) 0.0 (0.0-0.2) X10*3/uL Abs Immat Gran (auto) 0.02 (0.00-0.03) X10*3/uL Absolute Neuts (auto) 7.7 (2.0-8.3) x10*3/uL Absolute Nucleated RBC 0.000 (0.0-0.012) X10*3/uL Nucleated RBC % (auto) 0.0 (0.0-0.2) /100WBC Sodium 138 (135-145) mmol/L Potassium 3.9 (3.3-5.1) mmol/L Chloride 103 (96-108) mmol/L Carbon Dioxide 26 (22-29) mmol/L Anion Gap 13 (12-20) BUN 20 H (9-16) mg/dL Creatinine 0.89 (0.5-1.4) mg/dL Estim Creat Clear Calc 156.2 Estimated GFR > 60 Random Glucose 115 (60-115) mg/dL Calcium 10.5 H (8.4-10.2) mg/dL Troponin I High Sens < 2.7 (<3.5-35.0) ng/L Independent Interpretation I performed an independent interpretation of an: EKG (73 beats per minute, otherwise normal ECG without dysrhythmia, AV laura blocks or ST-T changes to suspect underlying ACS, my independent interpretation) and Plain X-Ray (My independent chest xray interpretation: Lungs: Lungs are clear bilaterally without evidence of focal consolidation, pleural effusion, or pneumothorax. Cardiac silhouette is unremarkable, no obvious mediastinal widening, no obvious bony abnormalities such as fractures. Impression: Normal chest X-r) Radiology Impression Discussion of test interpretation with radiology: I have reviewed the radiologist's reading. Radiologist Impression: 1. Questionable very subtle cortical step-off superior S2 level on the sagittal projections, raising the possibility of subtle S2 fracture. This is only well appreciated on the sagittal views. This could be artifact. Would correlate with cross-sectional CT imaging if felt clinically warranted. 2. Otherwise, no definite acute bony abnormalities of the lumbar spine. 3. Mild to moderate degenerative lumbar spondylosis. Prescription Management I considered prescription management with: Pain Medication Discharge Plan Discharge Clinical Impression: Injury of low back, Syncope and collapse Patient Disposition: Home, Self-Care Instructions: Back Pain (ED), Syncope (ED) Additional Instructions: Evaluated after what sounded like syncope, likely due to slight dehydration, then taking a hot shower going down the steps, please make sure to take care, stay well hydrated, rest, use ibuprofen 400 mg every 6 hours around the clock for the next few days, Tylenol 975 mg every 6 hours for additional pain control and I am providing you with a few oxycodone pills, ice packs and heat packs to the area, as discussed it was finding on the x-ray that maybe a very subtle fracture from a fall, possibly it is an old injury, if you have any issues with that you can follow up with the PCP and obtain an outpatient back MRI you may need physical therapy, and if you have any chest pain or shortness of breath and if you pass out again I would recommend that you come back to the ER that point I recommended admission. Prescriptions: New oxycodone 5 mg capsule 5 mg PO Q8H PRN (Reason: pain) 3 Days Qty: 10 0RF Rx Instructions: Partial Fill upon patient request. No Action cyclobenzaprine 5 mg tablet 5 mg PO Q8H PRN (Reason: muscle pain) Qty: 7 0RF naproxen 500 mg tablet 500 mg PO Q8-12H PRN (Reason: pain (scale score 1-3)) Qty: 20 0RF lidocaine [Lidoderm] 5 % adhesive patch,medicated 1 patch topical DAILY Qty: 15 0RF Rx Instructions: leave on most painful area for up to 12 hrs bacitracin 500 unit/gram ointment 1 appl topical BID Qty: 30 0RF cephalexin 500 mg capsule 500 mg PO QID Qty: 28 0RF Print Language: Sami
[2024-10-18 07:52] LABS: Anion Gap 13 (12-20); Blood Urea Nitrogen 20 mg/dL (9-16); Calcium 10.5 mg/dL (8.4-10.2); Carbon Dioxide 26 mmol/L (22-29); Chloride 103 mmol/L (96-108); Creatinine Clr Calc Pharmacy 156.2; Estimated Glomerular Filt Rate > 60; Glucose Random 115 mg/dL (60-115); Potassium 3.9 mmol/L (3.3-5.1); Sodium 138 mmol/L (135-145)
[2024-10-18] MEDS: Ketorolac Tromethamine 15 MG/ML VIAL IVPUSH (07:56)
[2024-10-18] MEDS: Morphine Sulfate 4 MG/ML CARTRIDGE IVPUSH (07:58)
[2024-10-18] MEDS: oxyCODONE HCl Immed Release 5 MG TABLET PO (07:59)
[2024-10-18 08:10] LABS: Troponin-I High Sensitivity < 2.7 ng/L (<3.5-35.0)
[2024-10-18 10:14] VITALS: BP 149/90; PULSE 79; RESP 19; TEMP 36.6; O2SAT 97
== END 2024-10-18 10:14 | disposition home or self-care (01) ==
PROVIDERS: Emergency Provider Emergency Medicine; PCP Family Medicine
DX: R55 Syncope and collapse (principal); M54.50 Low back pain, unspecified; I45.10 Unspecified right bundle-branch block; R94.31 Abnormal electrocardiogram [ECG] [EKG]
CPT/HCPCS: 36415; 71045; 72100; 80048; 84484; 85025; 93005; 96374; 96375; 99284; J1885; J2270

== ENCOUNTER → 2024-10-18 07:27 | Outpatient (BNV) | payer MEDICARE, MEDICAID, SELFPAY | PROVIDERS: Emergency Provider Emergency Medicine; PCP Family Medicine; Visit Provider Radiology Diagnostic Radiology | DX: M47.896 Other spondylosis, lumbar region (principal); R00.1 Bradycardia, unspecified | CPT/HCPCS: 71045; 72100 ==

== ENCOUNTER → 2024-10-18 07:28 | Outpatient (BNV) | payer MEDICARE, MEDICAID, SELFPAY | PROVIDERS: Emergency Provider Emergency Medicine; PCP Family Medicine; Visit Provider Internal Medicine | DX: I45.10 Unspecified right bundle-branch block (principal) | CPT/HCPCS: 93010 ==

== ENCOUNTER 2025-05-02 06:49 | Emergency (ER) | payer MEDICARE, MEDICAID, SELFPAY ==
[2025-05-02 06:50] VITALS: BP 172/89; PULSE 88; RESP 16; TEMP 36.1; O2SAT 96; BMI 28.2
--- NOTE | 2025-05-02 08:12 | ED_ITS ---
HPI - General Adult General Chief complaint: Neck Pain/Injury Stated complaint: Neck Pain Time Seen by Provider: 05/02/25 07:23 Source: patient, RN notes reviewed and old records reviewed Mode of arrival: ambulatory Limitations: no limitations History of Present Illness ED Provider: ALMA ROSA Hernandez HPI narrative: 54-year-old male with medical history of HTN presents to the ED due to L sided neck pain that began last night. Patient states he went ice fishing yesterday, came home to shower, feed his pets, ate dinner and when he went to lay down noticed L sided neck pain that caused him a mild headache and poor sleep last night due to pain. Patients pain is most significant when looking up, turning his head to the L and with L sided lateral bending. Patient denies falls/trauma/injury hx of malignancy or IVDU. Patient took 2 tylenol this morning without relief. Denies recent travel, sick contacts, fevers, chills, chest pain, SOB, lightheadedness, dizziness, nausea, vomiting, abdominal pain, visual changes, tinnitus, black /tarry stool, urinary symptoms MD complaint: L sided neck pain Related Data Previous Rx's ?Medication ?Instructions ?Recorded cyclobenzaprine 5 mg tablet 5 mg PO Q8H PRN muscle jaclyn n #7 tabs 11/27/23 lidocaine 5 % topical patch 1 patch topical DAILY #15 ea 11/27/23 (Lidoderm) naproxen 500 mg tablet 500 mg PO Q8-12H PRN pain (s romel 11/27/23 score 1-3) #20 tabs bacitracin 500 unit/gram topical 1 appl topical BID #3 0 grams 05/23/24 ointment cephalexin 500 mg capsule 500 mg PO QID #28 caps 05/28 oxycodone 5 mg tablet 5 mg PO Q6H PRN pain #10 tab s 10/18/24 cyclobenzaprine 5 mg tablet 5 mg PO TID PRN muscle spa sm #15 05/02/25 tabs Allergies Allergy/AdvReac Type Severity Reaction Status Date / Time aspirin (ASA) AdvReac Unknown STOMACH Verified 05/02/25 06:53 UPSET Review of Systems Review of Systems: Yes all other systems are reviewed and are negative PMFSH Past Medical History Attestation statement: The following information was validated with the patient. Source: old records reviewed and nursing notes reviewed Social History Social History Alcohol intake: current Alcohol intake frequency: a few times a week Smoked in Last 30 Days: No Use of substances other than those prescribed or required for medical reasons: No Advance Directives: No Advance Directives Information Provided: Yes Physical Exam ED Vital Signs: Vital Signs - 24 hr 05/02/25 06:50 Temperature 97 F Pulse Rate 88 Respiratory Rate 16 Blood Pressure 172/89 H Pulse Oximetry 96 Oxygen Delivery Method Room Air BMI result Body Mass Index 28.2 GENERAL APPEARANCE: ?AxOx4, generally well-appearing, no acute distress. HEENT: ?NC, AT. MMM. EOMI, clear conjunctiva, oropharynx clear. NECK: ?Supple without lymphadenopathy. TTP over L sternocleidomastoid muscle, and cervical paraspinal muscles, no midline spinal tenderness, no bony step-offs palpated, no overlying skin changes noted ROM intact however patient with significant pain when looking left, extension, and left-sided lateral bending, Kernig and Brudzinski sign negative HEART:? Normal rate and regular rhythm, normal S1/S2, no m/r/g LUNGS:? CTAB, moving air well. No crackles or wheezes are heard. ABDOMEN: ?Soft, nontender, nondistended with good bowel sounds heard. BACK: No CVAT, no obvious deformity. EXTREMITIES: ?Without cyanosis, clubbing or edema. NEUROLOGICAL: ?Grossly nonfocal. Alert and oriented, moving all 4 extremities. Observed to ambulate with normal gait. Skin: ?Warm and dry without any rash. NIH Stroke Scale Internal: Initial- Upon Arrival Level of Consciousness: Alert Level of Consciousness Questions: Answers both questions correctly Level of Consciousness Commands: Performs both tasks correctly Best Gaze: Normal Visual: No visual loss Facial Palsy: Normal Motor Arm (Right): No drift Motor Arm (Left): No drift Motor Leg (Right): No drift Motor Leg (Left): No drift Limb Ataxia: Absent Sensory: Normal Best Language: No aphasia Dysarthia: Normal Extinction and Inattention: No abnormality Score: 0 Medications Administered Discontinued Medications Generic Name Dose Route Start Last Admin Trade Name Freq PRN Reason Stop Dose Admin Cyclobenzaprine HCl 5 mg 05/02/25 08:12 05/02/25 08:37 Cyclobenzaprine Hcl 5 Mg Tablet PO 05/02/25 08:13 5 mg ONCE ONE Administration Ketorolac Tromethamine 15 mg 05/02/25 08:12 05/02/25 08:36 Ketorolac Tromethamine 15 Mg/Ml Vial IM 05/02/25 08:13 15 mg ONCE ONE Administration Medical Decision Making Medical Decision Making MDM Narrative: 54-year-old male with medical history of HTN presents to the ED due to L sided neck pain with mild intermittent headache that began last night after a day of ice fishing. Patient has pain with neck extension, looking left, and with L sided lateral bend, no radicular symptoms. denies fall/ trauma/ injury, patient without red flag symptoms of previous malignancy, tobacco user, dizziness, lightheadedness, tinnitus, history of IVDU. Physical exam with TTP of L sided cervical paraspinal muscles most significantly over the sternocleidomastoid muscle without midline spinal tenderness, or bony step-offs. NIHSS 0 VS on initial observation - BP 172/89, pulse rate of 88, respiratory rate of 16, afebrile with oral temp of 97?, O2 saturation 96% on room air. On physical exam patient is well-appearing, nontoxic appearing, in no acute distress, NIHSS of 0, Brudzinski and Kernig sign negative, no meningeal signs, HEENT exam reveals pupils reactive to accommodation, and consensual light reflex, no nystagmus, or pupil irregularities noted, TTP of left-sided cervical paraspinal muscles, without midline spinal tenderness, no bony step-offs, no overlying skin changes, ROM is intact however patient with pain when gazing left, with extension, and with left lateral bending, no meningeal signs, lungs clear to auscultation bilaterally, cardiac exam reveals normal rate and rhythm without murmurs/rubs/gallops, lower extremities without edema, no focal neurological deficits noted on exam Patient with left-sided cervical paraspinal tenderness to palpation without meningeal signs, NIHSS 0, without a fall/ injury/trauma to the area. Patient is afebrile, without red flag symptoms such as lightheadedness, dizziness, ataxia, tinnitus, visual changes No advanced imaging indicated. Patient was medicated with 15 mg Toradol, 5 mg Flexeril for suspected muscle spasm with improvement of his pain. patient has physical exam scheduled with his primary care doctor next week that he can follow up with. I discussed with the patient he may need physical therapy for further management of suspected torticollis, I considered Carotid artery dissection and vertebral artery dissection, spinal epidural abscess, fracture, however patient without any neurological deficits, no lightheadedness, no dizziness, no pupillary changes, no ataxia, or tinnitus and no injury/trauma to the area, no hx of IVDU or malignancy. Patient will be discharged home with 5 day course of Flexeril, and instructions to treat pain with Tylenol and ibuprofen, heating pads. patient was mildly hypertensive with a blood pressure of 172/89 on arrival, patient states he took his antihypertensive medication this morning. Patient feels well enough to go home for self-care. Patient is in agreement with the plan. VS on re-evaluation- BP 118/76, pulse rate of 69, respiratory rate of 20, afebrile with oral temp of 98.5?, O2 saturation 96% on room air. Differential Diagnosis Differential Diagnoses: The differential diagnosis associated with the presentation includes Spinal epidural abscess Discitis Vertebral artery dissection Carotid artery dissection Fracture Cervical radiculopathy Torticollis Admission/Observation Consideration of admission/observation: Escalation of care including admission/observation considered External Record Review External record reviewed: Inpatient record, Office record and Outpatient record Chronic Conditions Patient?s care impacted by: Hypertension Discharge Plan Discharge Clinical Impression: Torticollis Patient Disposition: Home, Self-Care Additional Instructions: You were evaluated in the emergency department due to left-sided neck pain. Your physical exam is reassuring as you have some pain with range of motion however you are able to move the neck, without any concerning pain to palpation of the central spine. Your symptoms are most likely due to muscle spasm /torticollis. You are being discharged with a 5 day course of Flexeril for muscle spasm. Additionally you can take 500 mg of Tylenol every 5 hours 400 mg of ibuprofen every 6 hours for pain management, I encourage you to use heating pad, and gentle stretching. Please follow up with your primary care doctor as you may need physical therapy for additional treatment of torticollis. Please return to the emergency department if you experience Fevers over 100.4?, dizziness, lightheadedness, ringing in your ears, unsteadiness on your feet, worsening headache, worsening left-sided neck pain, or any new/worsening / concerning symptoms. Prescriptions: New cyclobenzaprine 5 mg tablet 5 mg PO TID PRN (Reason: muscle spasm) Qty: 15 0RF No Action cyclobenzaprine 5 mg tablet 5 mg PO Q8H PRN (Reason: muscle pain) Qty: 7 0RF naproxen 500 mg tablet 500 mg PO Q8-12H PRN (Reason: pain (scale score 1-3)) Qty: 20 0RF lidocaine [Lidoderm] 5 % adhesive patch,medicated 1 patch topical DAILY Qty: 15 0RF Rx Instructions: leave on most painful area for up to 12 hrs bacitracin 500 unit/gram ointment 1 appl topical BID Qty: 30 0RF cephalexin 500 mg capsule 500 mg PO QID Qty: 28 0RF oxycodone 5 mg tablet 5 mg PO Q6H PRN (Reason: pain) Qty: 10 0RF Rx Instructions: Partial Fill upon patient request. Print Language: Swazi
[2025-05-02 09:28] VITALS: BP 118/76; PULSE 69; RESP 20; TEMP 36.9; O2SAT 96
[2025-05-02 09:57] VITALS: BP 118/76; PULSE 69; RESP 20; TEMP 36.9; O2SAT 96
== END 2025-05-02 09:57 | disposition home or self-care (01) ==
PROVIDERS: Emergency Provider Emergency Medicine Emergency Medical Services; PCP Family Medicine
DX: M43.6 Torticollis (principal); R29.700 NIHSS score 0
CPT/HCPCS: 96372; 99284; J1885